=== PATIENT | female | born 1960 | race Caucasian/White ===

== ENCOUNTER → 2025-04-05 | Day surgery (SDC) | payer OTHER ==
[2025-04-02 10:40] LABS: BASOPHILS % 0.6 % (0.0-1.0); EOSINOPHILS % 1.1 % (0.0-6.0); LYMPHOCYTES % 36.8 % (18.0-39.1); MONOCYTES % 10.0 % (4.4-11.3); NEUTROPHILS % 51.1 % (38.7-80.0); RED CELL DISTRIBUTION WIDTH 17.5 % (11.7-14.4)
[~2025-04-05] MED LIST: ACETAMINOPHEN 1000 MG/100 ML 100 ML IV ONE; CALCIUM PO; DEXAMETHASONE SOD PHOS INJ 4 MG/ML SDV ONE; DICYCLOMINE HCL10 MG PO; EPHEDRINE SULFATE INJ 50 MG/ML VIAL ONE; ESTROVEN MAX400 MCG PO; FAMOTIDINE 20 MG/2 ML VIAL IV ONE; FENTANYL CITRATE/PF 100MCG/2 ML INJ ONE; GAVILYTE-G SO4000 ML PO; LIDOCAINE HCL 2% LOCAL INJ 5 ML SDV VIAL INJ ONE; MAGNESIUM OXID400 MG PO; METOPROLOL SUCC25 MG PO; MIDAZOLAM HCL 2 MG/2 ML VIAL ONE; ONDANSETRON HCL INJ 2MG/ML 2ML 2 MG/ML VIAL ONE; POTASSIUM PO; PROPOFOL IV EMULSION 10 MG/ML 20 ML VIAL ONE; SEVOFLURANE INHAL SOLN 250 ML PEN BTL ONE; SIMVASTATIN20 MG PO; VIT A PO; VIT E PO; ZINC PO
[2025-04-05] MEDS: CEFAZOLIN SODIUM 2 GM ONE (07:10)
[2025-04-05] MEDS: LACTATED RINGER'S 1,000 ML ONE (07:11)
[2025-04-05 07:59] VITALS: TEMP 97.2
[2025-04-05] MEDS: FENTANYL CITRATE/PF 100MCG/2 ML INJ ONE (08:25)
[2025-04-05 09:10] VITALS: BP 140/81; PULSE 83; RESP 18; O2SAT 96
== END | disposition home or self-care (01) ==
LOC: OR 05:23
PROVIDERS: ATTEND Podiatrist Foot & Ankle Surgery
DX: M20.12 Hallux valgus (acquired), left foot (principal); I10 Essential (primary) hypertension; E78.5 Hyperlipidemia, unspecified; Z88.2 Allergy status to sulfonamides; Z01.810 Encounter for preprocedural cardiovascular examination; Z01.812 Encounter for preprocedural laboratory examination; Z01.818 Encounter for other preprocedural examination; Z79.899 Other long term (current) drug therapy
CPT/HCPCS: 28296; 36415; 71046; 85025; 93005; C1713; J0131; J1100; J1308; J2003; J2250; J2405; J2704; J3010; J7121